=== PATIENT | male | born 1970 | race African-American/Black ===

== ENCOUNTER 2023-06-04 22:28 | Inpatient (IN) ==
[2023-06-04] MEDS: ALBUT/IPRATROP 3MG/0.5MG NEB 3 ML VIAL ONE (22:51)
[2023-06-04] MEDS: dexAMETHasone**PF** 10 MG/ML VIAL IV ONE (22:53)
[2023-06-04] MEDS: ALBUT/IPRATROP 3MG/0.5MG NEB 3 ML VIAL INH STA (22:53)
--- NOTE | 2023-06-04 22:59 | Emergency Department Note ---
History of Present Illness General Chief complaint: Shortness of Breath/Dyspnea Stated complaint: COUGH, INDEGESTION, SOB Time Seen by Provider: 06/04/23 22:33 History of Present Illness Maximum Pain Intensity: 7 This 53-year-old male with asthma who quit smoking 2 weeks ago presents the ER complaining of chest pain, dyspnea and increased leg pain and swelling today. The tried Tums with no improvement. He is a city bus driver. Patient denies fever, chills, abdominal pain, vomiting, diarrhea. Patient states he ran 3 miles at the gym without difficulties along with lifting weights. He states later on he started moving boxes a lot of dust on them and is not sure if this contributed to his symptoms. No trauma while working out. No exertional training today. Past Med/Surg History Social History Smoking Status: Former smoker Preferred Language: Yi Feels Safe at Home: Yes Review of Systems A total of 10 systems reviewed and were otherwise negative Physical Exam Vital Signs Vital Signs - 24 hr 06/04/23 22:34 06/04/23 22:55 06/04/23 23:04 Temperature 36.3 C L Temperature Source Temporal Artery Scan Pulse Rate 81 76 Pulse Rate [Apical] Respiratory Rate 16 20 Respiratory Effort / Characteristics Spontaneous Labored Respiratory Depth Normal Respiratory Pattern Regular Blood Pressure 168/97 H Blood Pressure Mean 120 Pulse Oximetry 89 L 94 Oxygen Delivery Method Room Air Nasal Cannula Nasal Cannula Oxygen Flow Rate 2 2 Sepsis Recent Fever Within 48 Hours No Sepsis New/Unexplained Change in Mental Status No Sepsis Action Taken by Nursing No Action Required Oxygen Flow Rate - Titration Pulse Oximetry Post Tiitration 06/04/23 23:04 06/04/23 23:04 Temperature Temperature Source Pulse Rate Pulse Rate [Apical] 73 Respiratory Rate 18 Respiratory Effort / Characteristics Non-Labored Respiratory Depth Normal Respiratory Pattern Regular Blood Pressure Blood Pressure Mean Pulse Oximetry 89 L 93 Oxygen Delivery Method Room Air Nasal Cannula Nasal Cannula Oxygen Flow Rate 0 2 Sepsis Recent Fever Within 48 Hours Sepsis New/Unexplained Change in Mental Status Sepsis Action Taken by Nursing Oxygen Flow Rate - Titration 2 Pulse Oximetry Post Tiitration 92 VITALS: Vitals are noted on the nurse's note and reviewed by myself. Vital signs hypoxic on room air and improved with nasal cannula GENERAL: Pleasant gentleman, in no acute distress, nondiaphoretic, well- developed well-nourished. SKIN: Capillary reflex less than 2 seconds. +1 pitting edema up to the mid tib- fib bilaterally HEENT: Normocephalic. PERRLA. EOMI. Nares patent. Mucous membranes moist. Neck is supple without nuchal rigidity. HEART: Regular rate and rhythm LUNGS: Diffuse inspiratory and end expiratory wheezes. No retractions or accessory muscle use. ABDOMEN: Positive bowel sounds x 4. Normal tympanic percussion. Soft, nontender, without masses or organomegaly. Blank sign negative. No guarding or rebound tenderness. no CVA tenderness MUSCULOSKELETAL: No gross musculoskeletal defects. NEURO: Patient was alert and oriented to person place and time. No focal neurological deficits. Course Administered Medications Discontinued Medications Albuterol (Albut/Ipratrop 3mg/0.5mg Neb 3 Ml Vial) Confirm Administered Dose 3 ml .ROUTE .STK-MED ONE Stop: 06/04/23 22:47 Last Admin: 06/04/23 22:51 Dose: Not Given Documented By: KAMERON Albuterol (Albut/Ipratrop 3mg/0.5mg Neb 3 Ml Vial) 3 ml INH NOW STA Stop: 06/04/23 22:46 Last Admin: 06/04/23 22:53 Dose: 3 ml Documented By: KAMERON Albuterol (Albut/Ipratrop 3mg/0.5mg Neb 3 Ml Vial) 3 ml NEB NOW STA; Protocol Stop: 06/04/23 23:43 Last Admin: 06/04/23 23:52 Dose: 3 ml Documented By: KAMERON Dexamethasone Sodium Phosphate (DexamethasonePf 10 Mg/Ml Vial) 10 mg IV NOW ONE Stop: 06/04/23 22:46 Last Admin: 06/04/23 22:53 Dose: 10 mg Documented By: KAMERON Ioversol (Optiray 320 125ml) 125 ml IV ONCE ONE Stop: 06/04/23 23:58 Last Admin: 06/04/23 23:57 Dose: 115 ml Documented By: REGINE Medical Decision Making Medical Records Attestation: I reviewed the patient's medical records. Home Medications Current Medication List: was personally reviewed by ar Laboratory Data Attestation: I reviewed the patient's lab results. 06/04/23 22:50 06/04/23 22:50 Lab Results 06/04/23 06/04/23 Range/Units 22:50 22:57 WBC 8.04 (4.8-10.8) K/ul RBC 4.67 L (4.70-6.10) M/uL Hgb 14.4 (14.0-18.0) g/dl POC Hgb 14.6 (14.0-18.0) g/dl Hct 41.8 L (42.0-52.0) % POC Hct 43 (42-52) % MCV 89.5 (80.0-100.0) fL MCH 30.8 (25.0-34.0) pg MCHC 34.4 (32.0-36.0) g/dL RDW Std Deviation 43.2 (36.4-46.3) fL RDW Coeff of Armaan 13.2 (11.5-14.5) % Plt Count 344 (130-400) K/uL MPV 9.1 L (9.4-12.4) fL Immature Gran % (Auto) 0.2 % Neut % (Auto) 50.1 % Lymph % (Auto) 29.7 % [place] % (Auto) 10.3 % Eos % (Auto) 9.0 % Baso % (Auto) 0.7 % Neut # (Auto) 4.02 (1.40-6.50) K/uL Lymph # (Auto) 2.39 (1.20-3.40) K/uL [place] # (Auto) 0.83 H (0.11-0.59) K/uL Eos # (Auto) 0.72 H (0.00-0.50) K/uL Baso # (Auto) 0.06 (0.00-0.20) K/uL Immature Gran # (Auto) 0.02 (0.01-0.20) K/uL PT 10.3 (9.0-12.0) Seconds INR 0.9 (0.9-1.1) APTT 26 (21-31) Seconds PTT Ratio 0.9 VBG pH 7.39 (7.36-7.41) VBG pCO2 49 (38-50) mmHg VBG pO2 35 mmHg VBG HCO3 30 mmol/L VBG O2 Saturation 63.8 % VBG Base Excess 3.7 mEq/L POC Sodium 142 (135-144) mmol/L Sodium 140 (136-145) mmol/L POC Potassium 3.8 (3.3-5.0) mmol/L Potassium 3.8 (3.5-5.1) mmol/L POC Chloride 103 (101-112) mmol/L Chloride 105 (98-107) mmol/L Carbon Dioxide 27 (21-32) mmol/L POC Total CO2 27 (24-31) mmol/L Anion Gap 8 (3-11) POC Anion Gap 16.0 (16-25) mmol/L POC BUN 22 H (7-18) mg/dl BUN 22 (6-23) mg/dl Creatinine 1.42 H (0.6-1.4) mg/dl POC Creatinine 1.5 H (0.6-1.3) mg/dl Est Cr Clr Drug Dosing 74.3 ml/min Est GFR ( Amer) 64.4 ml/min Est GFR (Non-Af Amer) 55.6 ml/min BUN/Creatinine Ratio 15.5 (10-20) Glucose 90 (70-99(Fasting)) mg/dl POC Glucose (other) 91 (70-99) mg/dl Calcium 9.7 (8.6-10.3) mg/dl POC Ioniz Calcium Rubens 1.28 (1.12-1.32) mmol/l Magnesium 2.0 (1.7-2.4) mg/dl Total Bilirubin 0.7 (0.2-1.0) mg/dl AST 44 H (13-39) U/L ALT 25 (7-52) U/L Alkaline Phosphatase 51 (34-104) U/L Total Creatine Kinase 804 H (30-223) U/L Troponin I High Sens 8.2 (0-20) pg/ml B-Natriuretic Peptide 15 (0-100) pg/ml Total Protein 7.0 (6.0-8.3) gm/dl Albumin 4.1 (3.4-5.0) gm/dl Globulin 2.9 (2.5-4.0) gm/dl Albumin/Globulin Ratio 1.4 (0.9-2) Lipase 43 (11-82) U/L Adenovirus (PCR) Not Detected (NotDetected) B. pertussis DNA (PCR) Not Detected (NotDetected) B.parapertussis DNA PCR Not Detected (NotDetected) C. pneumoniae DNA (PCR) Not Detected (NotDetected) Coronavirus OC43 (PCR) Not Detected (NotDetected) Coronavirus HKU1 (PCR) Not Detected (NotDetected) Coronavirus 229E (PCR) Not Detected (NotDetected) SARS-CoV-2 (PCR) Not Detected (NotDetected) Coronavirus NL63 (PCR) Not Detected (NotDetected) Human Metapneumovir PCR Not Detected (NotDetected) Influenza Type A (PCR) Not Detected (NotDetected) Influenza Type B (PCR) Not Detected (NotDetected) M. pneumoniae (PCR) Not Detected (NotDetected) Parainfluenza 1 (PCR) Not Detected (NotDetected) Parainfluenza 2 (PCR) Not Detected (NotDetected) Parainfluenza 3 (PCR) Not Detected (NotDetected) Parainfluenza 4 (PCR) Not Detected (NotDetected) RSV (PCR) Not Detected (NotDetected) Entero/Rhino (PCR) Not Detected (NotDetected) Imaging Data Attestation: I personally reviewed and interpreted this imaging study as follows: Radiologist's Impression: Chest CTA 06/04/23 22:45 Exam(s): CTA CHEST IV Amt: 115 ML OPTIRAY 320 EXAM: CT Angiography Chest With Intravenous Contrast CLINICAL HISTORY: Dyspnea. TECHNIQUE: Axial computed tomographic angiography images of the chest with intravenous contrast. CTDI is 27.21 mGy and DLP is 851.35 mGy-cm. Automated exposure control was utilized for the study. A dose lowering technique was utilized adhering to the principles of ALARA. MIP reconstructed images were created and reviewed. COMPARISON: No relevant prior studies available. FINDINGS: Pulmonary arteries: Accounting for respiratory artifact, there is no definite evidence for pulmonary embolism. Aorta: No acute findings. No thoracic aortic aneurysm. Lungs: No focal airspace consolidation. Pleural space: Unremarkable. No significant effusion. No pneumothorax. Heart: Unremarkable. No cardiomegaly. No significant pericardial effusion. Bones/joints: No acute fracture. No dislocation. Soft tissues: Unremarkable. Lymph nodes: Unremarkable. No enlarged lymph nodes. IMPRESSION: 1. Accounting for respiratory artifact, there is no definite evidence for pulmonary embolism. 2. No focal airspace consolidation. No pleural effusion or pneumothorax. Electronically signed by: Alex Sousa MD 06/05/23 00:26 AM MDM Narrative Prior records/ancillary studies reviewed. Triage Nursing notes reviewed. Additional history obtained from the family. The patient's history was concerning for respiratory difficulties. Differential diagnosis: Etiologies such as infections, reactive airway disease, pneumonia, pneumothorax, COPD, CHF, cardiac ischemia, pulmonary embolism, musculoskeletal, gastrointestinal, as well as others were entertained. Physical examination: As above. ER treatment provided: An order was placed for continuous cardiac monitoring. The monitor shows a rate of 60-100 with a sinus rhythm per my interpretation. Nasal cannula, DuoNeb, Decadron, i-STAT patient was sent down for CTA Limited bedside ultrasound shows no pericardial effusion and lung sliding in all 4 views per my independent interpretation. On reassessment the patient felt better. Diagnostic interpretation by me: The electrocardiogram was ordered for SOB. ECG: Normal sinus, normal intervals, first-degree AV block, no acute ST-T wave changes. Impression normal sinus rhythm with a first-degree AV block independently interpreted by myself The labs Independently Interpreted by myself revealed negative troponin. Normal VBG Slightly elevated CPK. Patient did workout in the gym today. Imaging studies: Chest x-ray with no acute consolidation, pneumothorax or free air per my independent interpretation CT as above Consultation: A consultation was placed with the hospitalist. The case was discussed and diagnostics were reviewed. The patient was evaluated in the ER for further treatment. This appears to be consistent with asthma exacerbation who is hypoxic. First heart test is negative. Repeat was ordered. EKG is nonischemic. He was still hypoxic on room air but improved with nasal cannula. He was given a few nebulizers. He was given steroids and magnesium. Medicine was consulted and case was discussed. He will be admitted to the medical service for further evaluation and workup.. By the evaluation outlined above emergent etiologies such as CHF, pulmonary embolism, pneumonia, pneumothorax, musculoskeletal, serious bacterial infections, as well as others were deemed relatively unlikely. The pt informed about the findings as listed above. All questions were answered and pleased with the treatment. The patient was referred back to their primary care physician for follow-up in 2 to 3 days for a recheck of the current condition. The chart was completed utilizing [employer] voice recognition software. Grammatical errors, random word insertions, pronoun errors, and incomplete sentences are an occassional consequence of this system due to software limitations, ambient noise, and hardware issues. Any formal questions or concerns about the content, text, or information contained within the body of this dictation should be directly addressed to the physician assistant editor for clarification. Impression & Plan Asthma with exacerbation, Chest pain, Hypoxic Discharge Plan Visit Data Chief Complaint: Shortness of Breath/Dyspnea Stated Complaint: COUGH, INDEGESTION, SOB ED Provider: Eileen Dumas ED Midlevel Provider: Sveta Paredes Discharge Problem: Asthma with exacerbation, Chest pain, Hypoxic Patient Disposition: Admitted As Inpatient Condition: Good Forms Stand Alone Forms: [facility] Referrals Referrals: PCP,NO [Primary Care Provider] - Discharge Problem: Asthma with exacerbation Qualifiers: Asthma severity: severe Asthma persistence: persistent Qualified Code(s): J 45.51 - Severe persistent asthma with (acute) exacerbation
[2023-06-04 23:05] LABS: Base Excess VBG 3.7 mEq/L; HCO3 VBG 30 mmol/L; Oxygen Saturation VBG 63.8 %; PCO2 VBG 49 mmHg (38-50); PO2 VBG 35 mmHg; pH VBG 7.39 (7.36-7.41)
[2023-06-04 23:12] LABS: Basophils # (auto) 0.06 K/uL (0.00-0.20); Basophils % (auto) 0.7 %; Eosinophils # (auto) 0.72 K/uL (0.00-0.50); Hematocrit (blood only) 41.8 % (42.0-52.0); Hemoglobin 14.4 g/dl (14.0-18.0); Immature Granulocytes # (auto) 0.02 K/uL (0.01-0.20); Immature Granulocytes % (auto) 0.2 %; Lymphocytes # (auto) 2.39 K/uL (1.20-3.40); Lymphocytes % (auto) 29.7 %; Mean Corpuscular Hemoglobin 30.8 pg (25.0-34.0); Mean Corpuscular Hgb Conc 34.4 g/dL (32.0-36.0); Mean Corpuscular Volume 89.5 fL (80.0-100.0); Mean Platelet Volume 9.1 fL (9.4-12.4); Monocytes # (auto) 0.83 K/uL (0.11-0.59); Monocytes % (auto) 10.3 %; Neutrophils # (auto) 4.02 K/uL (1.40-6.50); Neutrophils % (auto) 50.1 %; Platelet Count 344 K/uL (130-400); RDW Coefficient of Variation 13.2 % (11.5-14.5); RDW Standard Deviation 43.2 fL (36.4-46.3); Red Blood Count 4.67 M/uL (4.70-6.10); White Blood Count 8.04 K/ul (4.8-10.8)
[2023-06-04 23:13] LABS: iSTAT Creatinine 1.5 mg/dl (0.6-1.3); iSTAT Hemoglobin 14.6 g/dl (14.0-18.0); iSTAT Ionized Calcium 1.28 mmol/l (1.12-1.32); iSTAT Potassium 3.8 mmol/L (3.3-5.0)
[2023-06-04 23:31] LABS: Albumin Globulin Ratio 1.4 (0.9-2); Albumin Level 4.1 gm/dl (3.4-5.0); BUN Creatinine Ratio 15.5 (10-20); Bilirubin,Total 0.7 mg/dl (0.2-1.0); Calcium 9.7 mg/dl (8.6-10.3); Creatinine Clr Calc Pharmacy 74.3 ml/min; Est GFR (African American) 64.4 ml/min; Est GFR (Non-African American) 55.6 ml/min; Globulin 2.9 gm/dl (2.5-4.0); Potassium 3.8 mmol/L (3.5-5.1)
[2023-06-04 23:38] LABS: Troponin I High Sensitivity 8.2 pg/ml (0-20)
[2023-06-04 23:45] LABS: INR 0.9 (0.9-1.1); Partial Thromboplastin Ratio 0.9; Partial Thromboplastin Time 26 Seconds (21-31); Prothrombin Time 10.3 Seconds (9.0-12.0)
[2023-06-04] MEDS: ALBUT/IPRATROP 3MG/0.5MG NEB 3 ML VIAL NEB STA (23:52)
[2023-06-04 23:54] LABS: Adenovirus PCR Not Detected (NotDetected); Bordetella parapertussis PCR Not Detected (NotDetected); Bordetella pertussis PCR Not Detected (NotDetected); Chlamydia pneumoniae PCR Not Detected (NotDetected); Coronavirus 229E PCR Not Detected (NotDetected); Coronavirus CoV-2 (COVID19)PCR Not Detected (NotDetected); Coronavirus HKU1 PCR Not Detected (NotDetected); Coronavirus NL63 PCR Not Detected (NotDetected); Coronavirus OC43PCR Not Detected (NotDetected); Human Metapneumovirus PCR Not Detected (NotDetected); Influenza A PCR Not Detected (NotDetected); Influenza B PCR Not Detected (NotDetected); Mycoplasma pneumoniae PCR Not Detected (NotDetected); Parainfluenza Virus 1 PCR Not Detected (NotDetected); Parainfluenza Virus 2 PCR Not Detected (NotDetected); Parainfluenza Virus 3 PCR Not Detected (NotDetected); Parainfluenza Virus 4 PCR Not Detected (NotDetected); Respiratory Syncytial VirusPCR Not Detected (NotDetected); Rhinovirus/Enterovirus PCR Not Detected (NotDetected)
[2023-06-04] MEDS: OPTIRAY 320 125ml IV ONE (23:57)
--- NOTE | 2023-06-05 00:27 | CT Scan Report ---
Exam(s): CTA CHEST IV Amt: 115 ML OPTIRAY 320 EXAM: CT Angiography Chest With Intravenous Contrast CLINICAL HISTORY: Dyspnea. TECHNIQUE: Axial computed tomographic angiography images of the chest with intravenous contrast. CTDI is 27.21 mGy and DLP is 851.35 mGy-cm. Automated exposure control was utilized for the study. A dose lowering technique was utilized adhering to the principles of ALARA. MIP reconstructed images were created and reviewed. COMPARISON: No relevant prior studies available. FINDINGS: Pulmonary arteries: Accounting for respiratory artifact, there is no definite evidence for pulmonary embolism. Aorta: No acute findings. No thoracic aortic aneurysm. Lungs: No focal airspace consolidation. Pleural space: Unremarkable. No significant effusion. No pneumothorax. Heart: Unremarkable. No cardiomegaly. No significant pericardial effusion. Bones/joints: No acute fracture. No dislocation. Soft tissues: Unremarkable. Lymph nodes: Unremarkable. No enlarged lymph nodes. IMPRESSION: 1. Accounting for respiratory artifact, there is no definite evidence for pulmonary embolism. 2. No focal airspace consolidation. No pleural effusion or pneumothorax. Electronically signed by: Alex Sousa MD 06/05/23 00:26 AM
[2023-06-05] MEDS: MAGNESIUM SULFATE / D5W 1 GM/100 ML BAG IV SCH (00:54)
[2023-06-05] MEDS ORDERED: guaiFENesin/CODEINE 100MG/10MG 5ML UDC PO PRN (03:08)
[2023-06-05] MEDS ORDERED: NITROGLYCERIN SL 0.4 MG/TAB TAB SL PRN (03:08)
[2023-06-05] MEDS ORDERED: ACETAMINOPHEN 325 MG TAB PO PRN (03:08)
--- NOTE | 2023-06-05 03:15 | History & Physical Report ---
Date of Service June 05, 2023 Assessment & Plan (1) Asthma with exacerbation: Plan: 53-year-old male with past med significant for asthma currently not on any medications presents with shortness of breath cough and chest pain. Patient states moved to the area 3 months ago. Since prior to coming to this area he was having cough. Recently he had a course of steroid. Today he was moving some boxes where there was some dust. After that he felt burning pain in the chest and upper abdomen about 7/10 in severity also some difficulty taking deep breaths which prompted him to come to the ER. After neb treatments and oxygen supplementation is feeling better. Current chest pain is about 3/10 in severity. Denies any headache. Vision is okay. Some ear discomfort in the right ear. No sore throat. Has allergies. No nausea. Appetite is okay. No abdominal pain. Normal bowel bladder bowel movements. Lately is also noted some swelling in the legs. Resting comfortably and hemodynamically stable. Patient was saturating 89% on room air when he came in and currently with nasal cannula saturating okay. States he goes to the gym about 3 times a week and after workout when he comes home feels little bit short of breath. Asthma exacerbation Hypoxia requiring oxygen Nebs [id number] and as needed IV Solumedrol 40 mg twice daily CTA chest was okay Needs close follow-up Chest pain Mostly from above EKG and troponins negative Will follow serial enzymes and echo Consult cardiology in a.m. for further recommendation Lower extremity edema Follow echocardiogram Elevated CK Follow repeat labs DVT prophylaxis Lovenox Disposition Telemetry Full code History of Present Illness Chief Complaint: Shortness of breath and chest pain Primary Care Provider: NO PCP 53-year-old male with past med history significant for asthma currently not on any medications presents with shortness of breath, cough and chest pain. Patient states moved to the area 3 months ago. Since prior to coming to this area he was having cough. Recently he had a course of steroid. Today he was moving some boxes where there was some dust. After that he felt burning pain in the chest and upper abdomen about 7/10 in severity also some difficulty taking deep breaths which prompted him to come to the ER. After neb treatments and oxygen supplementation is feeling better. Current chest pain is about 3/10 in severity. Denies any headache. Vision is okay. Some ear discomfort in the right ear. No sore throat. Has allergies. No nausea. Appetite is okay. No abdominal pain. Normal bowel bladder bowel movements. Lately is also noted some swelling in the legs. Resting comfortably and hemodynamically stable. Patient was saturating 89% on room air when he came in and currently with nasal cannula saturating okay. States he goes to the gym about 3 times a week and after workout when he comes home feels little bit short of breath. Past medical history. As mentioned above Past surgical history none Family history. Mother had hypertension diabetes and high cholesterol. Father had seizures. Social history. He does smoke 1 cigarette daily for 20 years but quit few weeks ago. Alcohol occasional. No drug use. Allergies Allergy/AdvReac Type Severity Reaction Status Date / Time Sulfa (Sulfonamide Allergy Unknown Verified 06/05/23 01:18 Antibiotics) Home Medications Medication Instructions Recorded Confirmed Type bismuth subsalicylate 262 mg/15 mL 0 mg PO QID PRN Acid Reflux 06/05/23 06/05/23 History oral suspension (Pepto-Bismol) calcium carbonate 200 mg calcium 400 mg PO BID PRN Acid Reflux 06/05/23 06/05/23 History (500 mg) chewable tablet (Tums) famotidine 20 mg tablet (Pepcid AC) 20 mg PO DAILY PRN ,heartburn 06/05/23 06/05/23 History Past Med/Surg History Social History Smoking Status: Light tobacco smoker Hx Alcohol Use: Yes Hx Substance Use: No Preferred Language: Turkish Communication Ability: Effective 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 ENT- oropharynx clear. No erythema or drainage seen in the right ear Neck- supple, no JVD. Lungs- clear to auscultation mild bilateral rhonchi, no wheezing Heart- regular rhythm; no murmur, no gallop. Abdomen- normal bowel sounds, soft, nontender, no distension Extremities- mild b/l pretibial edema present. No erythema seen. Neuro- alert, oriented ; PERRL, no facial palsy; no dysarthria; obeys simple commands. Skin- warm & dry Results & Data Results & Data Vital Signs (Past 12 Hours) Vital Signs Temp Pulse Pulse Resp BP Pulse Ox O2 Del Method 06/04/23 23:04 73 18 93 Nasal Cannula 06/04/23 23:04 89 L Room Air, Nasal Cannula 06/04/23 23:04 Nasal Cannula 06/04/23 22:55 76 20 94 Nasal Cannula 06/04/23 22:34 36.3 C L 81 16 168/97 H 89 L Room Air O2 Flow Rate 06/04/23 23:04 2 06/04/23 23:04 0 06/04/23 23:04 2 06/04/23 22:55 2 06/04/23 22:34 Diagnostic Findings Laboratory Results WBC 8.04 K/ul (4.8-10.8) 06/04/23 22:50 RBC 4.67 M/uL (4.70-6.10) L 06/04/23 22:50 Hgb 14.4 g/dl (14.0-18.0) 06/04/23 22:50 POC Hgb 14.6 g/dl (14.0-18.0) 06/04/23 22:57 Hct 41.8 % (42.0-52.0) L 06/04/23 22:50 POC Hct 43 % (42-52) 06/04/23 22:57 MCV 89.5 fL (80.0-100.0) 06/04/23 22:50 MCH 30.8 pg (25.0-34.0) 06/04/23 22:50 MCHC 34.4 g/dL (32.0-36.0) 06/04/23 22:50 RDW Std Deviation 43.2 fL (36.4-46.3) 06/04/23 22:50 RDW Coeff of Armaan 13.2 % (11.5-14.5) 06/04/23 22:50 Plt Count 344 K/uL (130-400) 06/04/23 22:50 MPV 9.1 fL (9.4-12.4) L 06/04/23 22:50 Immature Gran % (Auto) 0.2 % 06/04/23 22:50 Neut % (Auto) 50.1 % 06/04/23 22:50 Lymph % (Auto) 29.7 % 06/04/23 22:50 [place] % (Auto) 10.3 % 06/04/23 22:50 Eos % (Auto) 9.0 % 06/04/23 22:50 Baso % (Auto) 0.7 % 06/04/23 22:50 Neut # (Auto) 4.02 K/uL (1.40-6.50) 06/04/23 22:50 Lymph # (Auto) 2.39 K/uL (1.20-3.40) 06/04/23 22:50 [place] # (Auto) 0.83 K/uL (0.11-0.59) H 06/04/23 22:50 Eos # (Auto) 0.72 K/uL (0.00-0.50) H 06/04/23 22:50 Baso # (Auto) 0.06 K/uL (0.00-0.20) 06/04/23 22:50 Immature Gran # (Auto) 0.02 K/uL (0.01-0.20) 06/04/23 22:50 PT 10.3 Seconds (9.0-12.0) 06/04/23 22:50 INR 0.9 (0.9-1.1) 06/04/23 22:50 APTT 26 Seconds (21-31) 06/04/23 22:50 PTT Ratio 0.9 06/04/23 22:50 VBG pH 7.39 (7.36-7.41) 06/04/23 22:50 VBG pCO2 49 mmHg (38-50) 06/04/23 22:50 VBG pO2 35 mmHg 06/04/23 22:50 VBG HCO3 30 mmol/L 06/04/23 22:50 VBG O2 Saturation 63.8 % 06/04/23 22:50 VBG Base Excess 3.7 mEq/L 06/04/23 22:50 POC Sodium 142 mmol/L (135-144) 06/04/23 22:57 Sodium 140 mmol/L (136-145) 06/04/23 22:50 POC Potassium 3.8 mmol/L (3.3-5.0) 06/04/23 22:57 Potassium 3.8 mmol/L (3.5-5.1) 06/04/23 22:50 POC Chloride 103 mmol/L (101-112) 06/04/23 22:57 Chloride 105 mmol/L (98-107) 06/04/23 22:50 Carbon Dioxide 27 mmol/L (21-32) 06/04/23 22:50 POC Total CO2 27 mmol/L (24-31) 06/04/23 22:57 Anion Gap 8 (3-11) 06/04/23 22:50 POC Anion Gap 16.0 mmol/L (16-25) 06/04/23 22:57 POC BUN 22 mg/dl (7-18) H 06/04/23 22:57 BUN 22 mg/dl (6-23) 06/04/23 22:50 Creatinine 1.42 mg/dl (0.6-1.4) H 06/04/23 22:50 POC Creatinine 1.5 mg/dl (0.6-1.3) H 06/04/23 22:57 Est Cr Clr Drug Dosing 74.3 ml/min 06/04/23 22:50 Est GFR ( Amer) 64.4 ml/min 06/04/23 22:50 Est GFR (Non-Af Amer) 55.6 ml/min 06/04/23 22:50 BUN/Creatinine Ratio 15.5 (10-20) 06/04/23 22:50 Glucose 90 mg/dl (70-99(Fasting)) 06/04/23 22:50 POC Glucose (other) 91 mg/dl (70-99) 06/04/23 22:57 Calcium 9.7 mg/dl (8.6-10.3) 06/04/23 22:50 POC Ioniz Calcium Rubens 1.28 mmol/l (1.12-1.32) 06/04/23 22:57 Magnesium 2.0 mg/dl (1.7-2.4) 06/04/23 22:50 Total Bilirubin 0.7 mg/dl (0.2-1.0) 06/04/23 22:50 AST 44 U/L (13-39) H 06/04/23 22:50 ALT 25 U/L (7-52) 06/04/23 22:50 Alkaline Phosphatase 51 U/L (34-104) 06/04/23 22:50 Total Creatine Kinase 804 U/L (30-223) H 06/04/23 22:50 Troponin I High Sens 8.3 pg/ml (0-20) 06/05/23 00:49 B-Natriuretic Peptide 15 pg/ml (0-100) 06/04/23 22:50 Total Protein 7.0 gm/dl (6.0-8.3) 06/04/23 22:50 Albumin 4.1 gm/dl (3.4-5.0) 06/04/23 22:50 Globulin 2.9 gm/dl (2.5-4.0) 06/04/23 22:50 Albumin/Globulin Ratio 1.4 (0.9-2) 06/04/23 22:50 Lipase 43 U/L (11-82) 06/04/23 22:50 Adenovirus (PCR) Not Detected (NotDetected) 06/04/23 22:50 B. pertussis DNA (PCR) Not Detected (NotDetected) 06/04/23 22:50 B.parapertussis DNA PCR Not Detected (NotDetected) 06/04/23 22:50 C. pneumoniae DNA (PCR) Not Detected (NotDetected) 06/04/23 22:50 Coronavirus OC43 (PCR) Not Detected (NotDetected) 06/04/23 22:50 Coronavirus HKU1 (PCR) Not Detected (NotDetected) 06/04/23 22:50 Coronavirus 229E (PCR) Not Detected (NotDetected) 06/04/23 22:50 SARS-CoV-2 (PCR) Not Detected (NotDetected) 06/04/23 22:50 Coronavirus NL63 (PCR) Not Detected (NotDetected) 06/04/23 22:50 Human Metapneumovir PCR Not Detected (NotDetected) 06/04/23 22:50 Influenza Type A (PCR) Not Detected (NotDetected) 06/04/23 22:50 Influenza Type B (PCR) Not Detected (NotDetected) 06/04/23 22:50 M. pneumoniae (PCR) Not Detected (NotDetected) 06/04/23 22:50 Parainfluenza 1 (PCR) Not Detected (NotDetected) 06/04/23 22:50 Parainfluenza 2 (PCR) Not Detected (NotDetected) 06/04/23 22:50 Parainfluenza 3 (PCR) Not Detected (NotDetected) 06/04/23 22:50 Parainfluenza 4 (PCR) Not Detected (NotDetected) 06/04/23 22:50 RSV (PCR) Not Detected (NotDetected) 06/04/23 22:50 Entero/Rhino (PCR) Not Detected (NotDetected) 06/04/23 22:50 Impressions Chest CTA 06/04/23 22:45 Exam(s): CTA CHEST IV Amt: 115 ML OPTIRAY 320 EXAM: CT Angiography Chest With Intravenous Contrast CLINICAL HISTORY: Dyspnea. TECHNIQUE: Axial computed tomographic angiography images of the chest with intravenous contrast. CTDI is 27.21 mGy and DLP is 851.35 mGy-cm. Automated exposure control was utilized for the study. A dose lowering technique was utilized adhering to the principles of ALARA. MIP reconstructed images were created and reviewed. COMPARISON: No relevant prior studies available. FINDINGS: Pulmonary arteries: Accounting for respiratory artifact, there is no definite evidence for pulmonary embolism. Aorta: No acute findings. No thoracic aortic aneurysm. Lungs: No focal airspace consolidation. Pleural space: Unremarkable. No significant effusion. No pneumothorax. Heart: Unremarkable. No cardiomegaly. No significant pericardial effusion. Bones/joints: No acute fracture. No dislocation. Soft tissues: Unremarkable. Lymph nodes: Unremarkable. No enlarged lymph nodes. IMPRESSION: 1. Accounting for respiratory artifact, there is no definite evidence for pulmonary embolism. 2. No focal airspace consolidation. No pleural effusion or pneumothorax. Electronically signed by: Alex Sousa MD 06/05/23 00:26 AM ECG Additional Comments: ECG. Sinus rhythm with first-degree AV block rate 76. No acute ST changes seen . Code Status & VTE Plan VTE Prophylaxis Plan VTE Prophylaxis will be ordered: Yes (1) Asthma with exacerbation Asthma persistence: persistent Asthma severity: severe Qualified Code(s): J45.51 - Severe persistent asthma with (acute) exacerbation
--- NOTE | 2023-06-05 07:06 | XRay Report ---
XR chest 1V portable HISTORY: 53 years-old Male Dyspnea COMPARISON: CTA chest of same day TECHNIQUE: AP view of the chest FINDINGS: Cardiomediastinal and hilar silhouettes are within normal limits. No pneumothorax, pleural effusion, airspace consolidation or pulmonary edema. Bones appear grossly intact. IMPRESSION: No acute process. ACT 112: Negative or not required by law. The above report was generated using voice recognition software. It may contain grammatical, syntax o r spelling errors. Electronically signed by: Lino Helton M.D. 06/05/2023 7:05 AM
[2023-06-05] MEDS: ALBUT/IPRATROP 3MG/0.5MG NEB 3 ML VIAL NEB SCH (07:11)
[2023-06-05 07:23] LABS: Anion Gap 10 (3-11); Calcium 9.9 mg/dl (8.6-10.3); Carbon Dioxide 20 mmol/L (21-32); Chloride 105 mmol/L (98-107); Magnesium 2.2 mg/dl (1.7-2.4); Sodium 135 mmol/L (136-145)
[2023-06-05 07:31] LABS: BUN Creatinine Ratio 16.5 (10-20); Blood Urea Nitrogen 21 mg/dl (6-23); Creatine Kinase 588 U/L (30-223); Creatinine Clr Calc Pharmacy 83.1 ml/min; Est GFR (African American) 73.7 ml/min; Est GFR (Non-African American) 63.6 ml/min; Glucose 136 mg/dl (70-99(Fasting)); Troponin I High Sensitivity 5.4 pg/ml (0-20)
[2023-06-05] MEDS: ENOXAPARIN INJ 40 MG/0.4 ML SYR SQ SCH (07:51)
[2023-06-05] MEDS: methylPREDNISolone 40 MG in SYRINGE 0 ML IV SCH (07:52)
[2023-06-05] MEDS: ASPIRIN 81 MG ECTAB PO SCH (07:52)
--- NOTE | 2023-06-05 08:41 | Cardiology Consultation ---
Date of Consultation June 05, 2023 Assessment & Plan (1) Asthma with exacerbation: (2) Tobacco abuse: (3) Chest pain: Plan Patient admitted with SOB/chest tightness/wheezing/cough/hypoxia, consistent with probable asthma vs COPD exacerbation. Long history of tobacco abuse. May have COPD. Recommend treatment per hospitalist of [facility], steroids. If symptoms persist, consider antibiotics. Would benefit from outpatient pulm testing - PFT's. Tobacco cessation strongly encouraged. Patient down to 1-2 cigarettes per day. Chest tightness noted yesterday as well. EKG without acute ischemic changes HS troponin unremarkable. CRP was minimally elevated Echo with normal LVEF, no wall motion abnormalities. He has been exercising regularly without exertional chest pain. Ongoing SOB has been noted with wheezing and cough with activity, consistent with possible asthma. Once his pulm status improves/treated for acute pulm exacerbation, would recommend outpatient stress echo. He has current [employer] license. Case discussed with Dr. Roca I spent a total of 60 minutes on the date of service in preparation, delivery, and documentation of the care provided to this patient, excluding any time spent in the performance of separately billed services. Deepti Prajapati PA-C Department of Cardiology, [facility] This chart was completed in part utilizing Speech Voice Recognition Software. Grammatical errors, random word insertions, pronoun errors, and incomplete sent ences are an occasional consequence of this system due to software limitations, ambient noise, and hardware issues. Any formal questions or concerns about the content, text, or information contained within the body of this dictation should be directly addressed to the provider for clarification. Supervising Physician Co-Signing Physician Notes Attending attestation: Case reviewed with the advanced practitioner. I have personally performed a history and physical examination on the patient. I have reviewed the advanced practitioner's documentation on the date of service referenced in note, and I agree with, and take responsibility for the plan of care. Agree with plan as outlined. I spent a total of 20 minutes coordinating, documenting, and providing care for this patient excluding time spent in the performance of separately billed services or time spent by another provider. Juvencio Roca DO History of Present Illness Reason for Consultation: SOB; CP Requesting Physician: Dr. Driscoll Attending Physician: Keyur Andrew MD History of Present Illness Patient is a 53 year old male who presented to [facility] with complaints of CP/dyspnea, difficult taking a deep breath and substernal chest tightness after moving boxes and possibly inhaling "dust". Patient recently relocated to the area from [facility]. Patient states he was in normal state of health yesterday having gone to the gym and exercised without exertional chest pain. He notes chronic dyspnea which is relatively unchanged. He has been having intermittent wheezing and ongoing cough for many weeks. He has not had this evaluated. He is trying to quit smoking and is down to 1 cigarette. He has been exercising regularly and notes wheezing and cough with exercise and [facility]. Yesterday he was fine when he was exercising and then he was moving boxes in a storage unit. He reports there was alot of dust. He began to cough and wheeze. [place] it was hard to take a deep breath and then developed chest tightness. On admission, patient was found to be hypoxic, treated with O2, nebs, steroids. Chest xray and chest CT unremarkable. EKG demonstrated NSR with non specific ST wave abnormality in inferior leads. No acute changes. Patient was evaluated for similar episode in February 2023 with acute shortness of breath and wheezing. Treated for possible asthma exacerbation with albuterol, steroids and nebulizer treatments. He was to follow-up with her PCP and have further pulmonary evaluation but he has not yet established with a primary care doctor in this region. History includes: 1. Asthma, but not currently treated 2. GERD 3. Prior tobacco abuse, quitting 3 months At time of consult, patient resting in bed and feeling much improved. Lingering cough noted. No recurrent chest pain or chest tightness. Able to take a deep breath. he notes chronic LE edema but this is unchanged. Worse in the evenings, better in the morning. 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 No prior OR, CAD, CHF, arrhythmia, valvular disease. He reports having a stress test in [place] about 2 years ago and was told this was normal. He takes no medications on a regular basis. Allergies Allergy/AdvReac Type Severity Reaction Status Date / Time Sulfa (Sulfonamide Allergy Unknown Verified 06/05/23 01:18 Antibiotics) Home Medications Medication Instructions Recorded Confirmed Type bismuth subsalicylate 262 mg/15 mL 0 mg PO QID PRN Acid Reflux 06/05/23 06/05/23 History oral suspension (Pepto-Bismol) calcium carbonate 200 mg calcium 400 mg PO BID PRN Acid Reflux 06/05/23 06/05/23 History (500 mg) chewable tablet (Tums) famotidine 20 mg tablet (Pepcid AC) 20 mg PO DAILY PRN ,heartburn 06/05/23 06/05/23 History Patient History Social History Smoking Status: Light tobacco smoker Hx Alcohol Use: Yes Hx Substance Use: No Preferred Language: Tanzanian Communication Ability: Effective 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 Beliefs That Will Affect Care: None Current Living Situation: Spouse Feels Safe at Home: Yes Safety Concerns: Feels Safe At This Time Assistive Devices: None Review of Systems Review of Systems: All systems reviewed & are unremarkable except as noted in HPI & below Physical Exam Constitutional: WD/WN, vitals as above well developed and + obese; no acute distress Neck: normal visual inspection Respiratory: + cough; no respiratory distress Ausc ultation: + diminished lung sounds and + wheezes; no rales and no rhonchi Cardiovascular: Rate/Rhythm: regular rate and regular rhythm Heart Sounds: normal S1 and normal S2; no murmur Vessels: no JVD Extremities: + edema (trace ankle edema around sock line) Musculoskeletal: no cyanosis or clubbing, extremities motor strength 5/5 Skin: no rashes, warm and dry Psychiatric: A+Ox3, euthymic affect Results & Data Vital Signs (Past 12 Hours) Vital Signs Temp Pulse Pulse Resp BP BP Pulse Ox 06/05/23 07:20 74 20 130/77 92 06/05/23 07:11 63 18 92 06/05/23 04:00 69 20 157/83 H 95 06/05/23 03:30 73 20 143/82 H 96 06/05/23 02:59 06/05/23 02:41 72 18 143/84 H 97 06/05/23 02:22 73 18 96 06/05/23 01:00 70 06/04/23 23:04 73 18 93 06/04/23 23:04 89 L 06/04/23 23:04 06/04/23 22:55 76 20 94 06/04/23 22:34 36.3 C L 81 16 168/97 H 89 L O2 Del Method O2 Flow Rate 06/05/23 07:20 Room Air 06/05/23 07:11 Nasal Cannula 2 06/05/23 04:00 Nasal Cannula 1 06/05/23 03:30 Nasal Cannula 1 06/05/23 02:59 Nasal Cannula 1 06/05/23 02:41 Nasal Cannula 1 06/05/23 02:22 Nasal Cannula 1 06/05/23 01:00 06/04/23 23:04 Nasal Cannula 2 06/04/23 23:04 Room Air, Nasal Cannula 0 06/04/23 23:04 Nasal Cannula 2 06/04/23 22:55 Nasal Cannula 2 06/04/23 22:34 Room Air Laboratory Results Cardiac Enzymes 06/04/23 06/05/23 06/05/23 Range/Units 22:50 00:49 06:46 AST 44 H (13-39) U/L Troponin I High Sens 8.2 8.3 5.4 (0-20) pg/ml B-Natriuretic Peptide 15 (0-100) pg/ml Coagulation 06/04/23 Range/Units 22:50 PT 10.3 (9.0-12.0) Seconds APTT 26 (21-31) Seconds B-Natriuretic Peptide 15 (0-100) pg/ml CBC 06/04/23 06/05/23 Range/Units 22:50 06:46 WBC 8.04 Cancelled (4.8-10.8) K/ul RBC 4.67 L Cancelled (4.70-6.10) M/uL Hgb 14.4 Cancelled (14.0-18.0) g/dl Hct 41.8 L Cancelled (42.0-52.0) % Plt Count 344 Cancelled (130-400) K/uL Neut # (Auto) 4.02 Cancelled (1.40-6.50) K/uL Lymph # (Auto) 2.39 Cancelled (1.20-3.40) K/uL [place] # (Auto) 0.83 H Cancelled (0.11-0.59) K/uL Eos # (Auto) 0.72 H Cancelled (0.00-0.50) K/uL Baso # (Auto) 0.06 Cancelled (0.00-0.20) K/uL Comprehensive Metabolic Panel 06/04/23 06/05/23 Range/Units 22:50 06:46 Sodium 140 135 L (136-145) mmol/L Potassium 3.8 TNP (3.5-5.1) mmol/L Chloride 105 105 (98-107) mmol/L Carbon Dioxide 27 20 L (21-32) mmol/L BUN 22 21 (6-23) mg/dl Creatinine 1.42 H 1.27 (0.6-1.4) mg/dl Glucose 90 136 H (70-99(Fasting)) mg/dl Calcium 9.7 9.9 (8.6-10.3) mg/dl AST 44 H (13-39) U/L ALT 25 (7-52) U/L Alkaline Phosphatase 51 (34-104) U/L Total Protein 7.0 (6.0-8.3) gm/dl Albumin 4.1 (3.4-5.0) gm/dl Intake and Output 06/04/23 06/05/23 06/05/23 22:59 06:59 14:59 Intake Total 200 / 200 Balance 200 / 200 Intake: IV 200 / 200 Magnesium Sulfate / D5w 1 gm In 200 / 200 100 ml @ 600 mls/hr IV Q10M [facility] Rx#:[id number] Other: # Unmeasured Voids 1 Weight 108 kg 108 kg Weight Measurement Method Chair Scale Built in [facility] Diagnostic Findings Telemetry reviewed: NSR, no arrhythmias Echo report reviewed dated 06/05/2023: Normal LV wall thickness. No regional wall motion abnormalities noted. Ejection fraction 65 to 70%. RV is normal in size and function. Grade 1 diastolic dysfunction. No evidence of pulmonary hypertension. No significant valvular disease. EKG reviewed on admission: NSR with 1st degree AV block, non specific ST/T wave abnormality in inferior leads. No acute changes EKG reviewed from Feb 2023: NSR with 1st degree AV block, voltage criteria for LVH, non specific ST/T wave abnormality. Chest CTA report reviewed on admission: IMPRESSION: 1. Accounting for respiratory artifact, there is no definite evidence for pulmonary embolism. 2. No focal airspace consolidation. No pleural effusion or pneumothorax. Chest xray report reviewed on admission: IMPRESSION: No acute process. Medications Administered Current Inpatient Medications Acetaminophen (Acetaminophen 325 Mg Tab) 650 mg PO Q4H PRN PRN Reason: Pain or Fever Stop: 07/05/23 03:07 Albuterol (Albut/Ipratrop 3mg/0.5mg Neb 3 Ml Vial) 3 ml NEB QIDR [facility]; Protocol Stop: 07/05/23 06:59 Last Admin: 06/05/23 07:11 Dose: 3 ml Aspirin (Aspirin 81 Mg Ectab) 81 mg PO QAM [facility] Stop: 07/05/23 08:59 Last Admin: 06/05/23 07:52 Dose: 81 mg Enoxaparin Sodium (Enoxaparin Inj 40 Mg/0.4 Ml Syr) 40 mg SQ Q24H [facility] Stop: 07/05/23 08:59 Last Admin: 06/05/23 07:51 Dose: 40 mg Guaifenesin/Codeine Phosphate (Guaifenesin/Codeine 100mg/10mg 5ml Udc) 5 ml PO Q6H PRN PRN Reason: Cough Stop: 07/05/23 03:07 Methylprednisolone 40 mg/ (Syringe) 0.64 mls @ 1.5 mls/min IV Q12H [facility] Stop: 07/05/23 08:59 Last Admin: 06/05/23 07:52 Dose: 1.5 mls/min Nitroglycerin (Nitroglycerin Sl 0.4 Mg/Tab Tab) 0.4 mg SL Q5M PRN PRN Reason: Chest Pain Stop: 07/05/23 03:07 (1) Asthma with exacerbation Asthma persistence: persistent Asthma severity: severe Qualified Code(s): J45.51 - Severe persistent asthma with (acute) exacerbation
[2023-06-05] MEDS ORDERED: methylPREDNISolone 125 MG/2 ML VIAL IV SCH (09:00)
[2023-06-05] MEDS: PANTOprazole 40 MG TAB PO SCH (12:11)
[2023-06-05 13:15] LABS: Basophils # (auto) 0.02 K/uL (0.00-0.20); Basophils % (auto) 0.2 %; Hematocrit (blood only) 39.4 % (42.0-52.0); Hemoglobin 13.8 g/dl (14.0-18.0); Immature Granulocytes # (auto) 0.05 K/uL (0.01-0.20); Immature Granulocytes % (auto) 0.5 %; Lymphocytes % (auto) 7.5 %; Mean Corpuscular Hemoglobin 30.6 pg (25.0-34.0); Mean Corpuscular Volume 87.4 fL (80.0-100.0); Mean Platelet Volume 9.5 fL (9.4-12.4); Monocytes # (auto) 0.25 K/uL (0.11-0.59); Monocytes % (auto) 2.4 %; Neutrophils # (auto) 9.48 K/uL (1.40-6.50); Neutrophils % (auto) 89.4 %; Platelet Count 356 K/uL (130-400); RDW Coefficient of Variation 13.3 % (11.5-14.5); RDW Standard Deviation 42.6 fL (36.4-46.3); Red Blood Count 4.51 M/uL (4.70-6.10)
[2023-06-05 13:34] LABS: Potassium 4.5 mmol/L (3.5-5.1)
[2023-06-05 13:40] LABS: Troponin I High Sensitivity 4.1 pg/ml (0-20)
--- NOTE | 2023-06-05 13:42 | Communication Note ---
Date of Service: June 05, 2023 Patient seen and examined at bedside. He is comfortable lying in the bed; not in distress. He reports that the chest tightness has improved compared to admission. He reports chronic cough for several months. He also reports that he occasionally coughs while he is eating. Cough also increases while he is exerting himself. Suspect exercise-induced asthma, GERD or possible aspiration for the cause of chronic cough. Will start him on PPI, inhaler with Breo and swallow evaluation. Echocardiogram shows normal EF; no significant valvular abnormalities. Continue [id number] inhaler, steroids. Wean oxygen as tolerated. On physical exam; Constitutional: Alert oriented x 3; not in distress. Respiratory: Bilateral vesicular breath sounds; occasional wheeze. Cardiovascular: RRR, no murmur, no edema Vessels: no JVD or carotid bruit Chest: normal inspection of chest Abdomen: normal bowel sounds, soft, nontender, no hepatosplenomegaly Musculoskeletal: no cyanosis or clubbing, extremities motor strength 5/5 Skin: no rashes, warm and dry normal turgor Neurologic: PERRL, EOMI, accommodation nl, no face palsy, no dysarthria CN's II- XI intact bilaterally and moves all extremities Psychiatric: A+Ox3, euthymic affect
[2023-06-05] MEDS: FLUTICASONE/VILANTEROL 100/25MCG 14 PUFFS/INHALER INH SCH (17:04)
[2023-06-05] MEDS: LORazepam 0.5 MG TAB PO STA (20:55)
--- NOTE | 2023-06-06 13:38 | Cardiology Progress Note ---
Date of Service June 06, 2023 Assessment & Plan (1) Asthma with exacerbation: (2) Tobacco abuse: (3) Chest pain: Plan Patient admitted with SOB/chest tightness/wheezing/cough/hypoxia, consistent with probable asthma vs COPD exacerbation. Long history of tobacco abuse. May have COPD. Recommend treatment per hospitalist of [facility], steroids. If symptoms persist, consider antibiotics. Would benefit from outpatient pulm testing - PFT's. Tobacco cessation strongly encouraged. Patient down to 1-2 cigarettes per day. Chest tightness noted yesterday as well. EKG without acute ischemic changes HS troponin unremarkable. CRP was minimally elevated Echo with normal LVEF, no wall motion abnormalities. He has been exercising regularly without exertional chest pain. Ongoing SOB has been noted with wheezing and cough with activity, consistent with possible asthma. Once his pulm status improves/treated for acute pulm exacerbation, would recommend outpatient stress echo. He has current CDL license. 06/06/23: patient with improved SOB, wheezing, chest tightness overnight with treatment of asthma/COPD exacerbation. Continue treatment upon discharge. would recommend f/u with PCP and possible pulmonary testing. Tobacco cessation strongly encouraged. Given his intermittent chest tightness on presentation, cardiac risk factors including tobacco abuse, would recommend outpatient exercise stress echo when his pulmonary status improves. Patient is agreeable to this plan. Stable for discharge from cardiac perspective. Case discussed with Dr. Roca I spent a total of 35 minutes on the date of service in preparation, delivery, and documentation of the care provided to this patient, excluding any time spent in the performance of separately billed services. Deepti Prajapati PA-C Department of Cardiology, [facility] This chart was completed in part utilizing Speech Voice Recognition Software. Grammatical errors, random word insertions, pronoun errors, and incomplete sentences are an occasional consequence of this system due to software limitations, ambient noise, and hardware issues. Any formal questions or concerns about the content, text, or information contained within the body of this dictation should be directly addressed to the provider for clarification. Admission and Anticipated Discharge Date Admission Date: June 05, 2023 Supervising Physician Co-Signing Physician Notes Case discussed with Deepti Mills PA-C. I agree with the findings and plan as outlined. Patient discharged before I had the opportunity to examine him personally. Plan for outpatient stress echocardiogram. Order to be placed in his outpatient chart. Carly Roca DO Subjective Patient evaluated this morning. Resting in chair out of bed. Reports he is feeling nearly 100% better. No recurrent chest tightness or chest pain. Shortness of breath also improved. Cough and wheezing have improved with current therapies. He was ambulating in the hallways without significant symptoms. He denies dizziness or lightheadedness. Review of Systems Review of Systems: All systems reviewed & are unremarkable except as noted in HPI & below Physical Exam Constitutional: WD/WN, vitals as above well developed and + obese; no acute distress Neck: normal visual inspection Respiratory: + cough; no respiratory distress Ausc ultation: + diminished lung sounds and + wheezes; no rales and no rhonchi Cardiovascular: Rate/Rhythm: regular rate and regular rhythm Heart Sounds: normal S1 and normal S2; no murmur Vessels: no JVD Extremities: + edema (trace ankle edema around sock line) Musculoskeletal: no cyanosis or clubbing, extremities motor strength 5/5 Skin: no rashes, warm and dry Psychiatric: A+Ox3, euthymic affect Results & Data Vital Signs (Past 12 Hours) Vital Signs Temp Pulse Pulse Pulse Pulse Resp Resp 06/06/23 11:59 36.5 C 82 18 06/06/23 11:34 36.5 C 82 18 06/06/23 11:22 76 16 06/06/23 10:45 06/06/23 09:41 71 68 16 06/06/23 08:42 06/06/23 07:24 63 16 06/06/23 07:19 36.6 C 63 18 06/06/23 07:00 68 06/06/23 03:13 36.6 C 75 20 Resp BP Pulse Ox Pulse Ox Pulse Ox O2 Del Method O2 Flow Rate 06/06/23 11:59 151/88 H 93 06/06/23 11:34 151/88 H 93 Room Air 06/06/23 11:22 Room Air 06/06/23 10:45 Room Air 06/06/23 09:41 14 95 92 06/06/23 08:42 93 Room Air 06/06/23 07:24 94 Nasal Cannula 2 06/06/23 07:19 133/87 91 Room Air 06/06/23 07:00 06/06/23 03:13 132/75 96 Nasal Cannula 2 Laboratory Results Cardiac Enzymes 06/05/23 06/05/23 Range/Units 12:53 17:11 Troponin I High Sens 4.1 3.3 (0-20) pg/ml Comprehensive Metabolic Panel 06/05/23 Range/Units 12:53 Potassium 4.5 (3.5-5.1) mmol/L Intake and Output 06/05/23 06/06/23 06/06/23 22:59 06:59 14:59 Intake Total 275 / 825 200 / 825 Balance 275 / 824 200 / 824 Intake: Oral 275 / 825 200 / 825 Other: # Unmeasured Voids 1 1 Weight 108.6 kg 108.6 kg Weight Measurement Method Built in [facility] Patient Weight 06/07/23 06:59 Weight 108.6 kg Diagnostic Findings Telemetry reviewed: Normal sinus rhythm in the 80s. No arrhythmias noted. EKG reviewed dated 06/06/2023: Normal sinus rhythm with possible left atrial enlargement Nonspecific ST-T wave abnormality. Likely early repolarization noted. Patient was asymptomatic at time of EKG. Echocardiogram reviewed from 06/05/2023: Normal LV wall thickness. No regional wall motion abnormalities noted. Ejection fraction 65 to 70%. RV is normal in size and function. No pulmonary hypertension. No significant valvular disease. (1) Asthma with exacerbation Asthma persistence: persistent Asthma severity: severe Qualified Code(s): J45.51 - Severe persistent asthma with (acute) exacerbation
--- NOTE | 2023-06-06 14:07 | Discharge Summary ---
Date of Service June 06, 2023 Admission HPI Per Admitting Provider 53-year-old male with past med history significant for asthma currently not on any medications presents with shortness of breath, cough and chest pain. Patient states moved to the area 3 months ago. Since prior to coming to this area he was having cough. Recently he had a course of steroid. Today he was moving some boxes where there was some dust. After that he felt burning pain in the chest and upper abdomen about 7/10 in severity also some difficulty taking deep breaths which prompted him to come to the ER. After neb treatments and oxygen supplementation is feeling better. Current chest pain is about 3/10 in severity. Denies any headache. Vision is okay. Some ear discomfort in the right ear. No sore throat. Has allergies. No nausea. Appetite is okay. No abdominal pain. Normal bowel bladder bowel movements. Lately is also noted some swelling in the legs. Resting comfortably and hemodynamically stable. Patient was saturating 89% on room air when he came in and currently with nasal cannula saturating okay. States he goes to the gym about 3 times a week and after workout when he comes home feels little bit short of breath. Past medical history. As mentioned above Past surgical history none Family history. Mother had hypertension diabetes and high cholesterol. Father had seizures. Social history. He does smoke 1 cigarette daily for 20 years but quit few weeks ago. Alcohol occasional. No drug use. Admission Exam Per Admitting Provider General- Not in distress Head- atraumatic Eyes- PERRL. ENT- oropharynx clear. No erythema or drainage seen in the right ear Neck- supple, no JVD. Lungs- clear to auscultation mild bilateral rhonchi, no wheezing Heart- regular rhythm; no murmur, no gallop. Abdomen- normal bowel sounds, soft, nontender, no distension Extremities- mild b/l pretibial edema present. No erythema seen. Neuro- alert, oriented ; PERRL, no facial palsy; no dysarthria; obeys simple commands. Skin- warm & dry Principal Diagnosis Asthma exacerbation Chronic cough Discharge Exam Constitutional: WD/WN, vitals as above, NAD, sitting up in bed, pleasant, conversing easily Respiratory: Bilateral clear breath sound. Occasional wheeze. Cardiovascular: RRR, no murmur, no edema Vessels: no JVD or carotid bruit Chest: normal inspection of chest Abdomen: normal bowel sounds, soft, nontender, no hepatosplenomegaly Musculoskeletal: no cyanosis or clubbing, extremities motor strength 5/5 Skin: no rashes, warm and dry normal turgor Neurologic: PERRL, EOMI, accommodation nl, no face palsy, no dysarthria CN's II- XI intact bilaterally and moves all extremities Psychiatric: A+Ox3, euthymic affect Discharge Data Allergies Allergy/AdvReac Type Severity Reaction Status Date / Time Sulfa (Sulfonamide Allergy Unknown Verified 06/05/23 01:18 Antibiotics) Consultations 06/05/23 00:33 ED Decision to Admit Stat 06/05/23 08:00 Consult Cardiology Routine Ordered Studies 06/04/23 22:45 CT angio chest PE protocol Stat Hospital Course (1) Asthma with exacerbation: 53-year-old male with past med significant for asthma currently not on any medications presents with shortness of breath cough and chest tightness. Patient was hypoxic on presentation; required oxygen by nasal cannula. Chest x-ray was done; no acute finding CTA ruled out PE. High sensitive troponin was negative Echocardiogram showed EF of 65 to 70% with grade 1 diastolic dysfunction. Speech evaluation was done for chronic cough; no signs of aspiration Two-step oxygen evaluation was done at discharge; patient did not require any oxygen at rest and exertion Patient was discharged home on course of steroids, albuterol inhaler, inhaled corticosteroid, montelukast. Patient needs to follow-up with PCP and obtain pulmonology referral. Please note the above document was generated using voice recognition software. It may contain grammatical, syntax or spelling errors. Any formal questions or concerns about the content, text or information contained within the body of this dictation should be directly addressed to the provider for clarification Total Time Total Time Spent Total Time Spent (In Minutes): 35 Total Time Includes: Examination of the Patient, Discharge Planning, Medication Reconciliation, Communication With Other Providers and Other Discharge Plan Discharge Items Patient Disposition: Home - Self-Care Reason For Visit: SOB, CHEST PAIN, HYPOXIA Discharge Diagnosis: Asthma exacerbation Chronic cough Condition on Discharge: Good Activity: Resume your previous activity Non-emergency contact: Primary Care Provider Call non-emergency contact if: you have any medication questions and your symptoms worsen Follow-up/Referrals: Kary Ray MD [Outside Practitioners] - (Date & Time 06/09/2023 11:00 AM Provider Kary Ray MD Department Family Practice [facility] ) PCP,NO [Primary Care Provider] - Diet: Regular Addtl Attending Provider Instructions: You were admitted to the hospital due to asthma exacerbation. You are prescribed following medications: 1) prednisone 40 mg once a day for 3 days 2) Protonix 40 mg once a day. This is for possible GERD that could cause chronic cough. 3) albuterol inhaler. Please use it prior to any exercise related activity. 4) Arnuity Ellipta 50 mcg once a day. If this medication is expensive; please do not pick it up. An alternative could be provided by your primary care doctor during the visit. 5) Singulair 10 mg once a day at night. This will help prevent allergy related symptoms. An appointment with a primary care doctor will be set up for you in next week. Please follow-up with them and obtain pulmonology referral. Pending Studies at Discharge: No Stand-Alone Forms: My [facility] [employer] Mobile, Work/School Release, Smoking Cessation Medications and DC Order Prescriptions: New pantoprazole 40 mg Tablet,Delayed Release (Dr/Ec) 40 mg PO QAM Qty: 30 0RF montelukast [Singulair] 10 mg tablet 10 mg PO DAILY Qty: 30 0RF albuterol sulfate 90 mcg/actuation aerosol powdr breath activated 1 inh inhalation Q6H PRN (Reason: shortness of breath or wheezing) Qty: 1 0RF Arnuity Ellipta 50 mcg/actuation blister with device 1 inh inhalation DAILY Qty: 30 0RF prednisone 20 mg tablet 40 mg PO DAILY 3 Days Qty: 6 0RF Continued bismuth subsalicylate [Pepto-Bismol] 262 mg/15 mL Suspension 0 mg PO QID PRN (Reason: Acid Reflux) calcium carbonate [Tums] 200 mg calcium (500 mg) Tablet,Chewable 400 mg PO BID PRN (Reason: Acid Reflux) Discontinued famotidine [Pepcid AC] 20 mg Tablet 20 mg PO DAILY PRN (Reason: ,heartburn) Discharge Orders: Discharge Order (Routine); Ordered 06/06/23 Ordered By: Keyur Andrew Admission Data Admit Date/Time: 06/05/23 00:14 Attending Provider: Keyur Andrew Admit Provider: Percy Driscoll Primary Care Provider: PCP,NO Other Providers: Percy Driscoll; Juvencio Roca Other Interventions: Discharge Summary Assessment (RN) Last Done: 06/06/23 11:59
--- NOTE | 2023-06-07 13:15 | Electrocardiogram Report ---
Test Reason : Blood Pressure : / mmHG Vent. Rate : 076 BPM Atrial Rate : 076 BPM P-R Int : 218 ms QRS Dur : 094 ms QT Int : 306 ms P-R-T Axes : 077 065 016 degrees QTc Int : 344 ms Sinus rhythm with 1st degree A-V block Otherwise normal ECG When compared with ECG of 05-MAR-2023 01:16, Questionable change in QRS axis Non-specific change in ST segment in Inferior leads QT has shortened Confirmed by Raymond Schulz ([id number]) on 06/07/2023 1:15:11 PM Referred By: NO PCP Confirmed By:Raymond Schulz
--- NOTE | 2023-06-07 15:19 | Electrocardiogram Report ---
Test Reason : Blood Pressure : / mmHG Vent. Rate : 087 BPM Atrial Rate : 087 BPM P-R Int : 182 ms QRS Dur : 098 ms QT Int : 322 ms P-R-T Axes : 068 051 018 degrees QTc Int : 387 ms Normal sinus rhythm Nonspecific T wave abnormality Abnormal ECG When compared with ECG of 04-JUN-2023 22:42, (unconfirmed) MN interval has decreased ST no longer elevated in Anterior leads Nonspecific T wave abnormality, worse in Anterolateral leads Confirmed by Raymond Schulz ([id number]) on 06/07/2023 3:19:42 PM Referred By: NO PCP Confirmed By:Raymond Schulz
--- NOTE | 2023-06-08 07:33 | Electrocardiogram Report ---
Test Reason : Blood Pressure : / mmHG Vent. Rate : 078 BPM Atrial Rate : 078 BPM P-R Int : 194 ms QRS Dur : 106 ms QT Int : 348 ms P-R-T Axes : 072 052 017 degrees QTc Int : 396 ms Normal sinus rhythm Possible Left atrial enlargement Left ventricular hypertrophy Nonspecific ST and T wave abnormality Abnormal ECG When compared with ECG of 05-JUN-2023 17:55, (unconfirmed) ST elevation now present in Anterior leads Confirmed by Raymond Schulz ([id number]) on 06/08/2023 7:33:00 AM Referred By: NO PCP Confirmed By:Raymond Schulz
== END 2023-06-06 13:05 | disposition home or self-care (01) | DRG 203 ==
LOC: ED 22:28 → EDINP 06-05 00:14 → 2S 06-05 03:08